=== PATIENT | female | born 1935 | race Caucasian/White ===

== ENCOUNTER 2016-12-03 19:51 | Emergency (ER) | payer MEDICARE, MEDICAID ==
[~2016-12-03] VITALS: Ht 152.4 cm; Wt 58.5 kg
[2016-12-03 21:58] VITALS: BP 145/84
== END 2016-12-03 21:59 | disposition home or self-care (01) ==
LOC: ER 19:55
DX: L03.115 Cellulitis of right lower limb (principal); I10 Essential (primary) hypertension; E11.9 Type 2 diabetes mellitus without complications
CPT/HCPCS: 73564; 93971; 99284; A4606; Z7610